=== PATIENT | male | born 1995 | race Hispanic/Latino ===

== ENCOUNTER 2024-10-12 22:06 | Emergency (ER) | payer BC ==
[~2024-10-12] VITALS: Ht 177.8 cm; Wt 135.2 kg
--- NOTE | 2024-10-12 22:09 | NUR ---
COVID, FLU AND STREP SWABS COLLECTED AND SENT
[2024-10-12 22:27] LABS: RAPID GROUP A STREP negative (NEGATIVE)
[2024-10-12 22:34] LABS: SARS-CoV-2, RNA, NAAT NEGATIVE SARS CoV-2 (NEGATIVE)
[2024-10-12 22:37] LABS: INFLUENZA TYPE A Negative For Type A (NEGATIVE); INFLUENZA TYPE B Negative For Type B (NEGATIVE)
[2024-10-12] MEDS ORDERED: AMOX1TAB16 PO (22:55)
--- NOTE | 2024-10-12 22:58 | ERN ---
ED Note History of Present Illness Stated Complaint: LEFT EAR PAIN, CONGESTION Chief Complaint: Multiple Complaints Time Seen by MD: 22:10 Time Seen by Midlevel: 22:10 Dictation: Patient is a 28-year-old male with a history of diabetes, tachyarrhythmias who presents to the emergency department with complaints of nonproductive cough, nasal congestion, bilateral ear pain onset two weeks ago. Patient denies any fevers. Allergies: Coded Allergies: cefaclor (Unverified Allergy, Unknown, 10/12/24) Past Medical History Past Medical History: No Pertinent History Surgical History: None RN Note Reviewed/Agreed w/PFSH: Yes Review of System Dictation Constitutional: Negative for fever,chills, and weight loss Eyes: Negative for injury, pain,redness, and discharge ENT: Bilateral ear pain Cardiovascular: Negative for chest pain, palpitations, and edema Respiratory: Negative for shortness of breath, , and wheezing, positive for cough Abdomen/GI: Negative for abdominal pain, nausea, vomiting, diarrhea, and c onstipation Back: Negative for injury and pain : Negative for injury, bleeding and discharge MS/Extremity: Negative for injury and deformity Skin: Negative for rash, and discoloration Neuro: Negative for headache, weakness, numbness, tingling, and seizure Psych: Negative for suicide ideation, homicidal ideation, and hallucinations Initial Vital Sign VS Vital Signs Date Time Temp Pulse Resp B/P (MAP) Pulse Ox O2 Delivery O2 Flow Rate FiO2 10/12/24 22:08 97.2 90 20 149/92 100 Room Air Physical Exam Dictation Vital Signs reviewed General Appearance: Alert, oriented x 3, no acute distress, well developed, nourished. Head and Face: non-traumatic. Eyes: PERRL, pink conjunctivas, eyelid no trauma, anterior chamber with arcus senilis. Ears: Pinnas intact and no signs of trauma or positive erythema ear canals to left ear and right ear canal with purulent drainage Nose: No discharge, no bleeding. Oropharynx: Mouth normal, tongue pink. pharynx clear,no erythema, tonsils no exudates, no abscesses noted, mucous membrane moist Neck: Supple, non-tender, no thyromegaly, no masses, no JVD, no bruits Breast:Deferred Chest:No tenderness, no crepitus, no paradoxical movement, no retractions Lungs:Clear, well-ventilated, symmetric, no rales, no wheezing, no rhonchi, no stridor, good breath sounds bilaterally Heart: Regular rate, regular rhythm, no murmur, no gallops Vascular: no peripheral edema, Abdomen: Soft, positive bowel sounds, nondistended, no guarding, nontender, no rebound, no masses no hepatomegaly, no splenomegaly, no Renee's sign, no hernias. Rectal: Deferred Genital: Deferred Neurological: Normal speech, motor function intact, sensory function intact Musculoskeletal: Neck nontender, full range of motion, back nontender, full range of motion, Extremities: nontender, full range of motion Skin: Color pink, dry, no turgor, no rash, no lacerations, no abrasions, no contusions. Lymphatic: Deferred Results (Laboratory/Radiology) Laboratory/Radiology Laboratory Tests Test 10/12/24 22:09 Influenza Type A Antigen Negative For Type A Influenza Type B Antigen Negative For Type B SARS-CoV-2, RNA, NAAT NEGATIVE SARS CoV-2 Group A Streptococcus Rapid negative (NEGATIVE) Labs Reviewed?: Yes ED Course ED Course Orders Procedure Category Date Status Time Covid Rna Naat LAB 10/12/24 Complete 22:08 Influenza Type A & B, LAB 10/12/24 Complete Rapid 22:08 Rapid (Group A Strep) LAB 10/12/24 Complete 22:08 Vital Signs Date Time Temp Pulse Resp B/P (MAP) Pulse Ox O2 Delivery O2 Flow Rate FiO2 10/12/24 22:08 97.2 90 20 149/92 100 Room Air Medical Decision Making MDM Patient is a 28-year-old male with a history of diabetes, tachyarrhythmias who presents to the emergency department with complaints of nonproductive cough, nasal congestion, bilateral ear pain onset two weeks ago. Patient denies any fevers. Serology negative. Patient has right ear with purulent drainage. We will be started on antibiotics. Patient with stable vital signs, in no acute distress. Patient instructed to follow up with PCP to continue monitoring ear infection. Patient nontoxic appearance agrees to be discharged. Patient reports allergy to cephalocaudal but reports he only gets a rash. reports taking penicillins without complications Differential diagnosis: Otitis media, upper respiratory infection, strep throat Need for hospitalization: Patient does not meet criteria for hospitalization. There are no social concerns with this patient. DX & DISP Disposition: Discharge Departure Impression: Primary Impression: Right otitis media Condition: Stable Scripts Amoxicillin/Potassium Clav (Amox Tr-K Clv 875-125 mg Tab) 875 Mg-125 Mg Tablet 1 TAB PO BID for 10 Days, #20 TAB 0 Refills Prov: MI NAVA 10/12/24 Additional Instructions: Please follow up with your primary doctor in 1-2 days. Take medications as prescribed and until finished. If symptoms worsen please return to ER. Please avoid getting into pools or any thing that can bring watering to your ears. FOLLOW-UP WITH PRIMARY CARE PROVIDER IN 1 TO 2 DAYS. TAKE MEDICATIONS DIRECTED HERE IN THE EMERGENCY ROOM. OKAY TO CONTINUE HOME MEDICATIONS UNLESS OTHERWISE DISCUSSED DURING YOUR VISIT IN THE EMERGENCY ROOM TODAY. RETURN TO YOUR NEAREST EMERGENCY ROOM IF SYMPTOMS WORSEN OR IF THERE IS NO IMPROVEMENT. CALL 911 IF YOU NEED IMMEDIATE ASSISTANCE. TAKE TYLENOL OR MOTRIN [id number] NEEDED AND IF NO CONTRAINDICATIONS ARE PRESENT. INCREASE ORAL HYDRATION. A WOUND CULTURE OR URINE CULTURE WAS ORDERED HERE IN THE EMERGENCY ROOM DEPARTMENT PLEASE FOLLOW-UP WITH PRIMARY CARE PROVIDER AND ADVISE THEM TO GET REPEAT PORTS FROM OUR FACILITY. IF YOU HAD ANY TOM WRAP/SPLINTS THAT WERE APPLIED HERE, PLEASE DO NOT REMOVE THEM UNTIL YOU SEE YOUR PRIMARY CARE OR SPECIALTY. Referrals: SELF,REFERRAL (PCP) Time of Disposition: 22:51 I have reviewed the case, and I agree with, Diagnosis and Plan MI NAVA October 12, 2024 22:58
[2024-10-12 23:15] VITALS: BP 144/86; PULSE 88; RESP 16; TEMP 97.7; O2SAT 100
== END 2024-10-12 23:16 | disposition home or self-care (01) ==
LOC: EDH 22:06
DX: H66.91 Otitis media, unspecified, right ear (principal); E11.9 Type 2 diabetes mellitus without complications; Z20.822 Contact with and (suspected) exposure to COVID-19; Z88.1 Allergy status to other antibiotic agents; Z88.8 Allergy status to other drugs, medicaments and biological substances
CPT/HCPCS: 87635; 87804; 87880; 99283